=== PATIENT | male | born 1980 | race Caucasian/White ===

== ENCOUNTER 2017-09-06 11:39 | Inpatient (IN) | payer OTHER ==
[2017-09-06] MEDS ORDERED: hydrALAZINE HCL 20 MG/ML 1 ML VIAL IVP STA (11:58)
[2017-09-06] MEDS ORDERED: LORazepam 2 MG/ML INJ IV STA (11:59)
--- NOTE | 2017-09-06 12:03 | ED ---
General Adult HPI - General Chief complaint: Recheck/Abnormal Lab/Rx Stated complaint: hypertension Time Seen by Provider: 09/06/17 11:40 Source: patient, EMS, RN notes reviewed Mode of arrival: EMS Limitations: no limitations - History of Present Illness Initial comments: This is a 36-year-old male who presents emergency department with past mental history significant for alcoholism and high blood pressure. Patient states his blood pressures been elevated for the last couple of weeks and he seen his primary medical doctor over weeks ago and he has not yet changes prescription. Patient states the last couple of days he's had a headache he's had blurred peripheral vision and has some shadowing in his periphery and he has felt his heart racing. Patient states he's been taking his blood pressure at home and has been quite hot. Especially the bottom number. Patient states this morning he did drink a pint of alcohol. Patient states he has taken an days he hasn't drank and it is also high. Patient denies any chest pain palpitations difficulty breathing [place] of breath per patient denies abdominal pain patient denies nausea vomiting or diarrhea. - Related Data Home Medications Medication Instructions Recorded Confirmed Albuterol Inhaler [Ventolin Hfa 2 puff INHALATION RT-QID PRN 09/06/17 09/06/17 Inhaler] Beclomethasone Dipropionate [Qvar 2 puff INHALATION RT-BID 09/06/17 09/06/17 80 mcg] Lisinopril [Zestril] 10 mg PO DAILY 09/06/17 09/06/17 Allergies Allergy/AdvReac Type Severity Reaction Status Date / Time No Known Allergies Allergy Verified 09/06/17 12:04 Review of Systems ROS Statement: Those systems with pertinent positive or pertinent negative responses have been documented in the HPI. ROS Other: All systems not noted in ROS Statement are negative. Past Medical History Past Medical History: Asthma, Hypertension History of Any Multi-Drug Resistant Organisms: None Reported Past Surgical History: Tonsillectomy Past Psychological History: Anxiety, Depression Smoking Status: Current every day smoker Past Alcohol Use History: Daily Past Drug Use History: None Reported General Exam - General Exam Comments Initial Comments: GENERAL: Patient is well-developed and well-nourished. Patient is nontoxic and well- hydrated and is in no acute distress. Patient is intoxicated and somewhat obnoxious ENT: Neck is soft and supple. No significant lymphadenopathy is noted. Oropharynx is clear. Moist mucous membranes. Neck has full range of motion without eliciting any pain. EYES: The sclera were anicteric and conjunctiva were pink and moist. Extraocular movements were intact and pupils were equal round and reactive to light. Eyelids were unremarkable. PULMONARY: Unlabored respirations. Good breath sounds bilaterally. No audible rales rhonchi or wheezing was noted. CARDIOVASCULAR: There is a regular rate and rhythm without any murmurs gallops or rubs. ABDOMEN: Soft and nontender with normal bowel sounds. SKIN: Skin is clear with no lesions or rashes and otherwise unremarkable. NEUROLOGIC: Patient is alert and oriented x3. Cranial nerves II through XII are grossly intact. Motor and sensory are also intact. Normal speech, volume and content. Symmetrical smile. MUSCULOSKELETAL: Normal extremities with adequate strength and full range of motion. LYMPHATICS: No significant lymphadenopathy is noted PSYCHIATRIC: Normal psychiatric evaluation. Normal interpersonal interactions appears functionally intact in deals appropriately with others. No signs of depression. No signs of anxiety. Limitations: no limitations Course Vital Signs 09/06/17 09/06/17 11:41 12:55 Temperature 97 F L Pulse Rate 114 H Respiratory 16 Rate Blood Pressure 160/114 152/100 O2 Sat by Pulse 92 L Oximetry Medical Decision Making - Medical Decision Making EKG shows sinus tachycardia at 108 bpm ME interval is on a 44 QRS is 92 QT interval 326 QTC is 436 per patient's EKG shows no ST segment elevation or depression or T wave abnormalities are noted. CT of the brain shows no acute abnormality. Patient still states he has blurred vision and some shadowing vision in his periphery. - Lab Data Result diagrams: 09/06/17 11:49 09/06/17 11:49 Lab Results 09/06/17 09/06/17 09/06/17 Range/Units 11:49 11:49 11:49 WBC 6.3 (3.8-10.6) k/uL RBC 5.24 (4.30-5.90) m/uL Hgb 16.9 (13.0-17.5) gm/dL Hct 47.4 (39.0-53.0) % MCV 90.3 (80.0-100.0) fL MCH 32.3 (25.0-35.0) pg MCHC 35.8 (31.0-37.0) g/dL RDW 15.4 (11.5-15.5) % Plt Count 159 (150-450) k/uL Neutrophils % 56 % Lymphocytes % 26 % Monocytes % 7 % Eosinophils % 7 % Basophils % 1 % Neutrophils # 3.5 (1.3-7.7) k/uL Lymphocytes # 1.6 (1.0-4.8) k/uL Monocytes # 0.5 (0-1.0) k/uL Eosinophils # 0.5 (0-0.7) k/uL Basophils # 0.1 (0-0.2) k/uL PT (9.0-12.0) sec INR (<1.2) APTT (22.0-30.0) sec Sodium 147 H (137-145) mmol/L Potassium 3.9 (3.5-5.1) mmol/L Chloride 105 (98-107) mmol/L Carbon Dioxide 24 (22-30) mmol/L Anion Gap 18 mmol/L BUN 12 (9-20) mg/dL Creatinine 0.96 (0.66-1.25) mg/dL Est GFR (CKD-EPI)AfAm >90 (>60 ml/min/1.73 sqM) Est GFR (CKD-EPI)NonAf >90 (>60 ml/min/1.73 sqM) Glucose 97 (74-99) mg/dL Calcium 8.7 (8.4-10.2) mg/dL Magnesium 1.9 (1.6-2.3) mg/dL Total Bilirubin 0.5 (0.2-1.3) mg/dL AST 85 H (17-59) U/L ALT 108 H (21-72) U/L Alkaline Phosphatase 68 (38-126) U/L Total Creatine Kinase 207 H (55-170) U/L CK-MB (CK-2) 1.3 (0.0-2.4) ng/mL CK-MB (CK-2) Rel Index 0.6 Troponin I <0.012 (0.000-0.034) ng/mL Total Protein 7.3 (6.3-8.2) g/dL Albumin 4.3 (3.5-5.0) g/dL Serum Alcohol 250 mg/dL 09/06/17 Range/Units 11:49 WBC (3.8-10.6) k/uL RBC (4.30-5.90) m/uL Hgb (13.0-17.5) gm/dL Hct (39.0-53.0) % MCV (80.0-100.0) fL MCH (25.0-35.0) pg MCHC (31.0-37.0) g/dL RDW (11.5-15.5) % Plt Count (150-450) k/uL Neutrophils % % Lymphocytes % % Monocytes % % Eosinophils % % Basophils % % Neutrophils # (1.3-7.7) k/uL Lymphocytes # (1.0-4.8) k/uL Monocytes # (0-1.0) k/uL Eosinophils # (0-0.7) k/uL Basophils # (0-0.2) k/uL PT 10.2 (9.0-12.0) sec INR 1.0 (<1.2) APTT 24.7 (22.0-30.0) sec Sodium (137-145) mmol/L Potassium (3.5-5.1) mmol/L Chloride (98-107) mmol/L Carbon Dioxide (22-30) mmol/L Anion Gap mmol/L BUN (9-20) mg/dL Creatinine (0.66-1.25) mg/dL Est GFR (CKD-EPI)AfAm (>60 ml/min/1.73 sqM) Est GFR (CKD-EPI)NonAf (>60 ml/min/1.73 sqM) Glucose (74-99) mg/dL Calcium (8.4-10.2) mg/dL Magnesium (1.6-2.3) mg/dL Total Bilirubin (0.2-1.3) mg/dL AST (17-59) U/L ALT (21-72) U/L Alkaline Phosphatase (38-126) U/L Total Creatine Kinase (55-170) U/L CK-MB (CK-2) (0.0-2.4) ng/mL CK-MB (CK-2) Rel Index Troponin I (0.000-0.034) ng/mL Total Protein (6.3-8.2) g/dL Albumin (3.5-5.0) g/dL Serum Alcohol mg/dL Disposition Clinical Impression: Alcohol intoxication, Hypertensive urgency, Blurred vision Disposition: ADMITTED IP TO THIS HOSP Is patient prescribed a controlled substance at d/c from ED?: No Referrals: Gamaliel Coffman MD [Primary Care Provider] - 1-2 days Time of Disposition: 13:08
[2017-09-06 12:15] LABS: Basophils # (A) 0.1 k/uL (0-0.2); Basophils % (A) 1 %; Eosinophils # (A) 0.5 k/uL (0-0.7); Eosinophils % (A) 7 %; HCT 47.4 % (39.0-53.0); HGB 16.9 gm/dL (13.0-17.5); Lymphocytes # (A) 1.6 k/uL (1.0-4.8); Lymphocytes % (A) 26 %; MCH 32.3 pg (25.0-35.0); MCHC 35.8 g/dL (31.0-37.0); MCV 90.3 fL (80.0-100.0); Mean Platelet Volume 7.1; Monocytes # (A) 0.5 k/uL (0-1.0); Monocytes % (A) 7 %; Neutrophils # (A) 3.5 k/uL (1.3-7.7); Neutrophils % (A) 56 %; Platelet Count 159 k/uL (150-450); RBC 5.24 m/uL (4.30-5.90); RDW 15.4 % (11.5-15.5); WBC 6.3 k/uL (3.8-10.6)
[2017-09-06 12:23] LABS: Partial Thromboplastin Time 24.7 sec (22.0-30.0); Prothrombin Time 10.2 sec (9.0-12.0)
[2017-09-06 12:31] LABS: ALT 108 U/L (21-72); AST 85 U/L (17-59); Albumin 4.3 g/dL (3.5-5.0); Alkaline Phosphatase 68 U/L (38-126); Anion Gap 18 mmol/L; Blood Urea Nitrogen 12 mg/dL (9-20); Calcium 8.7 mg/dL (8.4-10.2); Carbon Dioxide 24 mmol/L (22-30); Chloride 105 mmol/L (98-107); Glucose 97 mg/dL (74-99); Magnesium 1.9 mg/dL (1.6-2.3); Potassium 3.9 mmol/L (3.5-5.1); Sodium 147 mmol/L (137-145); Total Bilirubin 0.5 mg/dL (0.2-1.3); Total Protein 7.3 g/dL (6.3-8.2)
[2017-09-06 12:35] LABS: Alcohol 250 mg/dL
[2017-09-06 12:40] LABS: Creatine Kinase 207 U/L (55-170)
--- NOTE | 2017-09-06 12:52 | CT ---
EXAMINATION TYPE: CT brain wo con DATE OF EXAM: 09/06/2017 COMPARISON: NONE HISTORY: Hypertension and headache. CT DLP: 1012.7 mGycm. Automated Exposure Control for Dose Reduction was Utilized. TECHNIQUE: CT scan of the head is performed without contrast. FINDINGS: There is no acute intracranial hemorrhage, mass effect, or midline shift identified. No s uspicious extra-axial fluid collection. The ventricles and sulci are within normal limits in size. T he globes are intact. The cerebellar tonsils are noted to be low-lying without ectopia or herniation. There is moderate mucosal thickening within the left maxillary and ethmoid sinuses. There is mild mu cosal thickening within the frontal and right maxillary sinus. Minimal mucosal thickening is seen wit hin the sphenoid sinus. Incidentally noted bilateral yoselin bullosa. Mastoid air cells are well aerat ed. No middle ear cavity fluid. IMPRESSION: 1. No acute intracranial process. No evidence of hypertensive intracranial hemorrhage. 2. Moderate pansinusitis.
[2017-09-06 12:53] LABS: Creatine Kinase MB 1.3 ng/mL (0.0-2.4); Troponin I <0.012 ng/mL (0.000-0.034)
--- NOTE | 2017-09-06 12:54 | XR ---
EXAMINATION TYPE: XR chest 2V DATE OF EXAM: 09/06/2017 COMPARISON: NONE HISTORY: Pulmonary nodules. Chest pain. TECHNIQUE: Frontal and lateral views of the chest are obtained. FINDINGS: There is no focal air space opacity, pleural effusion, or pneumothorax seen. The cardiac silhouette size is within normal limits. The osseous structures are intact. Very minimal degenerati ve changes of the thoracic spine are noted. Scattered 1 mm densities within the mid upper lungs are f avored to represent small pulmonary nodules although micronodules are possible. IMPRESSION: No acute cardiopulmonary process. Possible bilateral micronodules versus pulmonary vesse ls en face. These should be followed with CT thorax on a nonemergent basis.
[2017-09-06] MEDS ORDERED: LORazepam 2 MG/ML INJ IV PRN ×2 (13:10)
[2017-09-06] MEDS ORDERED: THIAMINE 100 MG/ML 2 ML VIAL IM STA (13:10)
[2017-09-06] MEDS ORDERED: SODIUM CHLORIDE 0.9% 1,000 ML IV ONE (13:10)
[2017-09-06] MEDS ORDERED: SODIUM CHLORIDE 0.9% 1,000 ML with MVI, ADULT NO.4 WITH VIT K 10 ML, THIAMINE 100 MG, F... IV ONE ×4 (13:30)
[2017-09-06] MEDS: LORazepam 2 MG/ML INJ IV PRN ×2 (16:47→20:53)
[2017-09-07] MEDS: DIAZEPAM 5 MG TAB PO SCH ×5 (00:17→20:50)
[2017-09-07] MEDS: METOPROLOL TARTRATE 12.5 MG TAB PO SCH ×4 (00:17→23:29)
[2017-09-07] MEDS: DEXTROSE 5%-0.45% NACL 1,000 ML IV SCH ×3 (00:18→20:46)
--- NOTE | 2017-09-07 00:23 | HP ---
HISTORY AND PHYSICAL DATE OF ADMISSION: 09/06/2017. PRESENTING COMPLAINT: Not feeling well, headache. HISTORY OF PRESENTING COMPLAINT: This is a 36-year-old patient of Dr. Coffman, who has a history of hypertension, some anxiety and depression. Also drinks, binge alcoholism. The patient has noticed his blood pressure to be fluctuating, noticing blood pressure to be 150/124 today. He takes lisinopril 10 mg. Also had a headache. The patient also has been noticing some dark spots from his eyes. The patient, for about 2 weeks, has been drinking 2 pints of whiskey a day, normally does binge alcohol drinking. The patient is not feeling well, tired. He decided to present to the ER. No focal weakness. No change in speech. No arm or leg weakness. REVIEW OF SYSTEMS: CONSTITUTIONAL: Tired. HEENT: As above. RESPIRATORY: None. CARDIOVASCULAR: None. GASTROINTESTINAL: Heartburn. GENITOURINARY: None. MUSCULOSKELETAL: None. DERMATOLOGIC: None. HEMATOLOGIC: None. LYMPHATIC: None. PSYCHIATRY: Mood anxious. NEUROLOGIC: None. PAST MEDICAL HISTORY: Asthma, hypertension, binge drinking. PAST PSYCHIATRIC HISTORY: Anxiety, depression. PAST SURGICAL HISTORY: Tonsillectomy. SOCIAL HISTORY: Patient lives with his who is a nurse and a 13-year-old daughter. The patient does seasonal work. Smokes about half a pack a day. He does binge drinking and drinking about two fifths of liquor for the last 2 weeks. The patient did marijuana over 15 years ago. FAMILY HISTORY: Father of lung cancer. HOME MEDICATIONS: 1. Lisinopril 10 mg p.o. daily. 2. Qvar 2 puffs b.i.d. 3. Ventolin HFA 2 puffs q.i.d. p.r.n. ALLERGIES: None. PHYSICAL EXAMINATION: VITAL SIGNS: Vital signs on presentation, temperature 97, pulse 114, respirations 16, blood pressure 160/104, pulse ox 92% on room air. GENERAL APPEARANCE: Average built, lying in bed, somewhat dishevelled. EYES: Pupils equal. Conjunctivae north. HEENT: Pseudo cushingoid. External nose and ears normal. Oral cavity normal. NECK: JVD not raised. Mass not palpable. Respiratory effort normal. LUNGS: Slightly decreased breath sounds. CARDIOVASCULAR: First and second sounds normal. No edema. ABDOMEN: Distended, soft, liver and spleen not palpable. LYMPHATIC: No lymph nodes palpable in neck or axillae. PSYCHIATRY: Alert and oriented x3. Mood and affect anxious-appearing. CHEST: Chest wall shows slight gynecomastia. DERMATOLOGIC: The patient has spider nevi in the upper chest. INVESTIGATIONS: White count 6.3, hemoglobin 16.9, potassium 4.9. AST 85, ALT 108. Serum alcohol is 250. ASSESSMENT: 1. Acute alcohol intoxication on presentation. 2. Possibly early alcohol withdrawal. 3. Alcoholic hepatitis. 4. Somewhat labile blood pressure, uncontrolled because of history of alcoholism. 5. Chronic nicotine dependence, the patient is a cigarette smoker. 6. Moderate persistent asthma. 7. Chronic alcohol dependence. PLAN: At this point we will start the patient on Valium scheduled to the CIWA scale. Change the patient's fluids to D5W. The patient's magnesium was noted, we will repeat magnesium and phosphorus in the morning. The patient was counseled extensively about alcohol. The patient's headache is much improved. We will also add beta juliet small dose to cut back out iatrogenic drive. Smoking cessation counseling was done with the patient, told him the importance of stopping smoking, as well as make asthma worse. More than 3 minutes were spent on this aspect of the case. Give the patient a nicotine patch. MMODL / IJN: [id number] /
[2017-09-07 07:52] LABS: Phosphorus 3.5 mg/dL (2.5-4.5)
[2017-09-07] MEDS: ENOXAPARIN 40 MG/0.4 ML SYRINGE SQ SCH (08:25)
[2017-09-07] MEDS: THIAMINE 100 MG TAB PO SCH ×2 (11:53→15:58)
--- NOTE | 2017-09-07 20:37 | PN ---
PROGRESS NOTE DATE OF SERVICE: 09/07/17 PRESENTING COMPLAINT: Anxious. INTERVAL HISTORY: This is a patient presented with fluctuating blood pressure and also from alcoholic excess and alcohol withdrawal. The patient has been put on Valium, had been tachycardiac and also beta-juliet for the same. The patient is feeling better today. Did actually tolerate some diet, looks more relaxed. REVIEW OF SYSTEMS: Done for constitutional, cardiovascular, GI, pulmonary and relevant findings as above. CURRENT MEDICATIONS: Include Valium 5 mg q.i.d. and Lopressor 12.5 p.o. t.i.d., Thiamin and IV fluids. PHYSICAL EXAMINATION: Temperature 98, pulse 88, respirations 16, blood pressure 150/97, pulse ox 96% on room air. General appearance: Lying in bed, looking more composed today. EYES: Pupils are equal. Conjunctivae normal. HEENT: Cushingoid. External appearance of nose and ears normal. Oral cavity normal. Neck JVD not raised. Mass not palpable. Respiratory effort lungs slightly decreased breath sounds. Cardiovascular: 1st and 2nd sounds normal. No edema. Abdomen distended, soft. Liver and spleen not palpable. Psychiatry: Alert and oriented x3. Mood and affect a bit less anxious-appearing today. INVESTIGATIONS: Phosphorus 3.5, magnesium 2. ASSESSMENT: 1. Acute alcohol intoxication on presentation. 2. Early alcohol withdrawal, controlled on Valium and beta juliet. 3. Alcoholic hepatitis. 4. Essential hypertension. 5. Chronic nicotine dependence, the patient is a cigarette smoker. 6. Moderate persistent asthma. 7. Chronic alcohol dependence. PLAN: Care was discussed with the patient. Keep the patient currently on the current dose of Valium and beta juliet. Will DC the IV fluids this evening. We will start the patient on lisinopril, hydrochlorothiazide and start backing off on the beta juliet tomorrow. Care was discussed with the patient. Will watch for another 24 hours. MMODL / IJN: [id number] /
[2017-09-07] MEDS: METOCLOPRAMIDE 5 MG TAB PO SCH (20:50)
[2017-09-07] MEDS: LISINOPRIL-HCTZ 10-12.5 MG 1 EACH TAB PO SCH (20:50)
[2017-09-08] MEDS: DIAZEPAM 5 MG TAB PO SCH ×3 (08:14→17:11)
[2017-09-08] MEDS: ENOXAPARIN 40 MG/0.4 ML SYRINGE SQ SCH (08:14)
[2017-09-08] MEDS: METOCLOPRAMIDE 5 MG TAB PO SCH ×3 (08:14→17:12)
[2017-09-08] MEDS: LISINOPRIL-HCTZ 10-12.5 MG 1 EACH TAB PO SCH (08:15)
[2017-09-08] MEDS ORDERED: METOPROLOL TARTRATE 12.5 MG TAB PO SCH (09:00)
[2017-09-08 09:13] LABS: Anion Gap 12 mmol/L; Blood Urea Nitrogen 16 mg/dL (9-20); Calcium 9.1 mg/dL (8.4-10.2); Carbon Dioxide 27 mmol/L (22-30); Chloride 102 mmol/L (98-107); Glucose 147 mg/dL (74-99); Sodium 141 mmol/L (137-145)
[2017-09-08] MEDS: THIAMINE 100 MG TAB PO SCH ×2 (11:54→17:12)
--- NOTE | 2017-09-08 15:04 | DS ---
DISCHARGE SUMMARY DATE OF ADMISSION: 09/06/2017 DATE OF DISCHARGE: 09/08/2017 FINAL DIAGNOSES: 1. Acute alcohol intoxication on presentation. 2. Early alcohol withdrawal, present on admission. 3. Alcoholic hepatitis. 4. Essential hypertension. 5. Chronic nicotine dependence, patient is a cigarette smoker. 6. Moderate persistent asthma. 7. Chronic alcohol dependence. HOSPITAL COURSE: This is a smoker also drinking heavily, presented with blood pressure fluctuating though on the higher side and alcohol withdrawal symptoms. Patient is put on Valium, beta blockers to which he responded well. Also blood pressure medications were adjusted. Today patient is doing much better. On examination, blood pressure 122/78. LUNGS: Fair entry. Patient is much more sober. Did discuss with the patient and reminded him to stop alcohol and smoking. DISCHARGE MEDICATIONS: 1. Ventolin HFA 2 puffs q.i.d. p.r.n. 2. QVAR 80 mcg 2 puffs b.i.d. 3. Valium 5 mg p.o. q.12 for 4 doses, then 5 mg for 2 days. 4. Disulfiram 500 mg daily for 7 days then 250 mg a day. 5. Zestoretic 02/23.5 one tablet p.o. b.i.d. 6. Thiamine 100 mg p.o. daily. 7. Discontinued medication lisinopril. Follow up with Dr. Cfofman in 3 days. On examination, alert and oriented x3. Lungs are clear. Cardiovascular first and second sounds are normal. MMODL / IJN: [id number] /
[2017-09-08 15:30] VITALS: BP 123/78; PULSE 94; RESP 26; TEMP 99.1
== END 2017-09-08 21:26 | disposition home or self-care (01) | DRG 897 ==
LOC: EC 11:39 → 4MS4W 13:10
PROVIDERS: ADMIT Hospitalist; ATTEND Hospitalist
DX: F10.239 Alcohol dependence with withdrawal, unspecified (principal); I16.0 Hypertensive urgency; F10.229 Alcohol dependence with intoxication, unspecified; Y90.8 Blood alcohol level of 240 mg/100 ml or more; J45.909 Unspecified asthma, uncomplicated; F17.210 Nicotine dependence, cigarettes, uncomplicated; F32.9 Major depressive disorder, single episode, unspecified; F41.9 Anxiety disorder, unspecified; K70.10 Alcoholic hepatitis without ascites; J45.40 Moderate persistent asthma, uncomplicated; Z71.41 Alcohol abuse counseling and surveillance of alcoholic; Z79.51 Long term (current) use of inhaled steroids; Z79.899 Other long term (current) drug therapy; Z80.1 Family history of malignant neoplasm of trachea, bronchus and lung
CPT/HCPCS: 36415; 70450; 71046; 80048; 80053; 80320; 82550; 82553; 83735; 84100; 84484; 85025; 85610; 85730; 93005; 96372; 96374; 96375; 99285

== ENCOUNTER 2017-11-26 23:52 | Emergency (ER) | payer OTHER ==
[2017-11-27] VITALS: TEMP 98.3
[2017-11-27] MEDS ORDERED: SODIUM CHLORIDE 0.9% 500 ML IV STA (01:43)
[2017-11-27 02:26] LABS: Basophils % (A) 0 %; Eosinophils # (A) 0.3 k/uL (0-0.7); Eosinophils % (A) 4 %; HCT 50.8 % (39.0-53.0); Lymphocytes # (A) 2.3 k/uL (1.0-4.8); Lymphocytes % (A) 28 %; MCH 30.9 pg (25.0-35.0); MCHC 35.4 g/dL (31.0-37.0); MCV 87.4 fL (80.0-100.0); Monocytes # (A) 0.6 k/uL (0-1.0); Monocytes % (A) 7 %; Neutrophils # (A) 4.8 k/uL (1.3-7.7); Neutrophils % (A) 59 %; Platelet Count 194 k/uL (150-450); RBC 5.82 m/uL (4.30-5.90); RDW 12.5 % (11.5-15.5); WBC 8.1 k/uL (3.8-10.6)
[2017-11-27 02:33] LABS: Partial Thromboplastin Time 23.8 sec (22.0-30.0); Prothrombin Time 9.9 sec (9.0-12.0)
[2017-11-27 02:40] LABS: ALT 106 U/L (21-72); AST 96 U/L (17-59); Albumin 4.2 g/dL (3.5-5.0); Alkaline Phosphatase 62 U/L (38-126); Anion Gap 14 mmol/L; Blood Urea Nitrogen 15 mg/dL (9-20); Carbon Dioxide 25 mmol/L (22-30); Chloride 103 mmol/L (98-107); Glucose 103 mg/dL (74-99); Magnesium 1.9 mg/dL (1.6-2.3); Potassium 4.1 mmol/L (3.5-5.1); Sodium 142 mmol/L (137-145); Total Bilirubin 0.9 mg/dL (0.2-1.3); Total Protein 7.2 g/dL (6.3-8.2)
[2017-11-27 02:46] LABS: Creatine Kinase 212 U/L (55-170)
[2017-11-27 02:59] LABS: Troponin I <0.012 ng/mL (0.000-0.034)
--- NOTE | 2017-11-27 03:02 | XR ---
EXAMINATION TYPE: XR chest 2V DATE OF EXAM: 11/27/2017 COMPARISON: 09/06/2017 HISTORY: Tachycardia. Asthma. TECHNIQUE: Frontal and lateral views of the chest are obtained. FINDINGS: Heart and mediastinum are normal. Lungs are clear. Diaphragm is normal. Bony thorax appear s normal. IMPRESSION: Normal chest. No change.
[2017-11-27 03:42] VITALS: BP 117/74; PULSE 99; RESP 20
--- NOTE | 2017-11-27 04:03 | ED ---
Arrhythmia/Palpitations HPI - General Chief Complaint: Arrhythmia/Palpitations Stated Complaint: Chest palpitations Time Seen by Provider: 11/27/17 01:33 Source: patient, RN notes reviewed, old records reviewed Mode of arrival: ambulatory Limitations: no limitations - History of Present Illness Initial Comments: 29-year-old male with a history of intoxication presents today with chief complaint of palpitations. Patient arrived via EMS. Patient states that his heart was fluttering earlier today. Upon arriving to emergency department at this time. He denies any chest pain or any other complaints at this time. He states that he has had no shortness of breath. No nausea or vomiting. He did complain of some minor dental pain. - Related Data Home Medications Medication Instructions Recorded Confirmed Albuterol Inhaler [Ventolin Hfa 2 puff INHALATION RT-QID PRN 09/06/17 09/06/17 Inhaler] Beclomethasone Dipropionate [Qvar 2 puff INHALATION RT-BID 09/06/17 09/06/17 80 mcg] Previous Rx's Medication Instructions Recorded Diazepam [Valium] 5 mg PO DIRECTED #6 tab 09/08/17 Disulfiram 250 mg PO DIRECTED #30 tablet 09/08/17 Lisinopril-Hctz 10-12.5 mg 1 each PO BID #60 tab 09/08/17 [Zestoretic 10-12.5] Thiamine [Vitamin B-1] 100 mg PO DAILY #30 tab 09/08/17 Amoxicillin 500 mg PO Q8H #30 capsule 11/27/17 chlordiazePOXIDE HCl [Librium] 25 mg PO QID #10 capsule 11/27/17 Allergies Allergy/AdvReac Type Severity Reaction Status Date / Time No Known Allergies Allergy Verified 11/27/17 00:00 Review of Systems ROS Statement: Those systems with pertinent positive or pertinent negative responses have been documented in the HPI. ROS Other: All systems not noted in ROS Statement are negative. Past Medical History Past Medical History: Asthma, Hypertension Additional Past Medical History / Comment(s): Binge drinker, recent chest pain and had work up at [facility]-pt states he had a normal stress test but their were lung nodules found per cat scan. History of Any Multi-Drug Resistant Organisms: None Reported Past Surgical History: Tonsillectomy Past Psychological History: Anxiety, Depression Smoking Status: Current every day smoker Past Alcohol Use History: Daily Past Drug Use History: None Reported - Past Family History Father Family Medical History: Cancer Additional Family Medical History / Comment(s): Father of lung cancer. He was a 2ppd smoker. Mother Family Medical History: No Reported History General Exam - General Exam Comments Initial Comments: 37-year-old male. Appears intoxicated. Limitations: no limitations General appearance: alert, in no apparent distress Head exam: Present: atraumatic, normocephalic, normal inspection Eye exam: Present: normal appearance, PERRL, EOMI. Absent: scleral icterus, conjunctival injection, periorbital swelling ENT exam: Present: normal exam, mucous membranes moist. Absent: normal oropharynx (Poor dentition. Multiple dental caries.) Neck exam: Present: normal inspection. Absent: tenderness, meningismus, lymphadenopathy Respiratory exam: Present: normal lung sounds bilaterally. Absent: respiratory distress, wheezes, rales, rhonchi, stridor Cardiovascular Exam: Present: regular rate, normal rhythm, normal heart sounds. Absent: systolic murmur, diastolic murmur, rubs, gallop, clicks GI/Abdominal exam: Present: soft, normal bowel sounds. Absent: distended, tenderness, guarding, rebound, rigid Extremities exam: Present: normal inspection, full ROM, normal capillary refill. Absent: tenderness, pedal edema, joint swelling, calf tenderness Back exam: Present: normal inspection Neurological exam: Present: alert, oriented X3, CN II-XII intact Psychiatric exam: Present: normal affect, normal mood Skin exam: Present: warm, dry, intact, normal color. Absent: rash Course Vital Signs 11/26/17 11/27/17 23:57 03:40 Temperature 98.3 F Pulse Rate 115 H 99 Respiratory 18 20 Rate Blood Pressure 145/97 117/74 O2 Sat by Pulse 94 L 99 Oximetry Medical Decision Making - Medical Decision Making 29-year-old male arrives EMS chief complaint of concern for palpitations. Upon arrival EKG was reviewed and normal. Patient's vital signs are within normal limits. He is intoxicated. Given IV fluids. Patient also did complain of some minor dental pain. Multiple dental caries. No evidence of significant abscess at this time. He will be started on amoxicillin. I also put the Patient on Librium discuss any serious continue drinking. I discussed the possible PCP. Patient was quite upset and wanting a cab ride back home to [facility]. Discussed he can follow-up with family to drive home. He is clinically sober at time of discharge. - Lab Data Result diagrams: 11/27/17 02:10 11/27/17 02:10 Lab Results 11/27/17 11/27/17 11/27/17 Range/Units 02:10 02:10 02:10 WBC 8.1 (3.8-10.6) k/uL RBC 5.82 (4.30-5.90) m/uL Hgb 18.0 H (13.0-17.5) gm/dL Hct 50.8 (39.0-53.0) % MCV 87.4 (80.0-100.0) fL MCH 30.9 (25.0-35.0) pg MCHC 35.4 (31.0-37.0) g/dL RDW 12.5 (11.5-15.5) % Plt Count 194 (150-450) k/uL Neutrophils % 59 % Lymphocytes % 28 % Monocytes % 7 % Eosinophils % 4 % Basophils % 0 % Neutrophils # 4.8 (1.3-7.7) k/uL Lymphocytes # 2.3 (1.0-4.8) k/uL Monocytes # 0.6 (0-1.0) k/uL Eosinophils # 0.3 (0-0.7) k/uL Basophils # 0.0 (0-0.2) k/uL PT (9.0-12.0) sec INR (<1.2) APTT (22.0-30.0) sec Sodium 142 (137-145) mmol/L Potassium 4.1 (3.5-5.1) mmol/L Chloride 103 (98-107) mmol/L Carbon Dioxide 25 (22-30) mmol/L Anion Gap 14 mmol/L BUN 15 (9-20) mg/dL Creatinine 0.80 (0.66-1.25) mg/dL Est GFR (CKD-EPI)AfAm >90 (>60 ml/min/1.73 sqM) Est GFR (CKD-EPI)NonAf >90 (>60 ml/min/1.73 sqM) Glucose 103 H (74-99) mg/dL Calcium 9.0 (8.4-10.2) mg/dL Magnesium 1.9 (1.6-2.3) mg/dL Total Bilirubin 0.9 (0.2-1.3) mg/dL AST 96 H (17-59) U/L ALT 106 H (21-72) U/L Alkaline Phosphatase 62 (38-126) U/L Total Creatine Kinase 212 H (55-170) U/L CK-MB (CK-2) 2.0 (0.0-2.4) ng/mL CK-MB (CK-2) Rel Index 0.9 Troponin I <0.012 (0.000-0.034) ng/mL Total Protein 7.2 (6.3-8.2) g/dL Albumin 4.2 (3.5-5.0) g/dL TSH 0.635 (0.465-4.680) mIU/L 11/27/17 Range/Units 02:10 WBC (3.8-10.6) k/uL RBC (4.30-5.90) m/uL Hgb (13.0-17.5) gm/dL Hct (39.0-53.0) % MCV (80.0-100.0) fL MCH (25.0-35.0) pg MCHC (31.0-37.0) g/dL RDW (11.5-15.5) % Plt Count (150-450) k/uL Neutrophils % % Lymphocytes % % Monocytes % % Eosinophils % % Basophils % % Neutrophils # (1.3-7.7) k/uL Lymphocytes # (1.0-4.8) k/uL Monocytes # (0-1.0) k/uL Eosinophils # (0-0.7) k/uL Basophils # (0-0.2) k/uL PT 9.9 (9.0-12.0) sec INR 1.0 (<1.2) APTT 23.8 (22.0-30.0) sec Sodium (137-145) mmol/L Potassium (3.5-5.1) mmol/L Chloride (98-107) mmol/L Carbon Dioxide (22-30) mmol/L Anion Gap mmol/L BUN (9-20) mg/dL Creatinine (0.66-1.25) mg/dL Est GFR (CKD-EPI)AfAm (>60 ml/min/1.73 sqM) Est GFR (CKD-EPI)NonAf (>60 ml/min/1.73 sqM) Glucose (74-99) mg/dL Calcium (8.4-10.2) mg/dL Magnesium (1.6-2.3) mg/dL Total Bilirubin (0.2-1.3) mg/dL AST (17-59) U/L ALT (21-72) U/L Alkaline Phosphatase (38-126) U/L Total Creatine Kinase (55-170) U/L CK-MB (CK-2) (0.0-2.4) ng/mL CK-MB (CK-2) Rel Index Troponin I (0.000-0.034) ng/mL Total Protein (6.3-8.2) g/dL Albumin (3.5-5.0) g/dL TSH (0.465-4.680) mIU/L - Radiology Data Radiology results: report reviewed Normal chest x-ray. No acute changes. Disposition Clinical Impression: History of palpitations, Pain, dental, ETOH abuse Disposition: HOME SELF-CARE Condition: Good Instructions: Palpitations (ED) Additional Instructions: Patient has follow-up with primary care physician in regards to high blood pressure medication. Discontinue drinking alcohol. Take this antibiotic as prescribed. Prescriptions: Amoxicillin 500 mg PO Q8H #30 capsule chlordiazePOXIDE HCl [Librium] 25 mg PO QID #10 capsule Is patient prescribed a controlled substance at d/c from ED?: Yes When asked, does pt state using other controlled substances?: No If prescribed controlled substance>3 days was MAPS reviewed?: Prescribed <3 Days If opioid is for acute pain is fill amount 7 days or less?: No If Rx opioid, was Start Talking consent form obtained?: No Referrals: Gamaliel Coffman MD [Primary Care Provider] - 1-2 days Time of Disposition: 04:01
== END 2017-11-27 04:37 | disposition home or self-care (01) ==
LOC: EC 23:52
DX: R00.2 Palpitations (principal); K08.89 Other specified disorders of teeth and supporting structures; F10.120 Alcohol abuse with intoxication, uncomplicated; J45.909 Unspecified asthma, uncomplicated; F17.200 Nicotine dependence, unspecified, uncomplicated; Z79.51 Long term (current) use of inhaled steroids
CPT/HCPCS: 36415; 71046; 80053; 82550; 82553; 83735; 84443; 84484; 85025; 85610; 85730; 93005; 96360; 99285